=== PATIENT | male | born 1965 | race Caucasian/White ===

== ENCOUNTER 2024-12-02 13:01 | Outpatient (AMB) | payer OTHER, SELFPAY ==
--- NOTE | 2024-12-02 13:03 | MHC.OFFVIS ---
Vital Signs 12/02/24 13:05 Height 5 ft 10 in Weight 185 lb 3.013 oz BMI 26.6 BP 111/78 Blood Pressure Location Lt brachial Position Sitting Pulse 78 Intake Visit Reasons: colo screening Intake Note: Gino presents in the office as a new patient colonoscopy screening. CC: States that the last time he had polyps removed so he is on the 5 year plan. Small Business Sales Representative Required: No Allergies No Known Allergies Allergy (Verified 12/02/24 13:05) Medication List - Last Reconciled 12/02/24 by Gabby Dougherty CNP albuterol sulfate 90 mcg/actuation inhalation diphenhydramine HCl (Benadryl) 25 mg PO BEDTIME PRN lisinopril-hydrochlorothiazide 20-12.5 mg 1 tab PO DAILY simethicone (Gas-X) 250 mg PO DAILY PRN HPI HPI colo screening: Details: Patient is a 59-year-old male with PMH of nicotine dependence, COPD, BPH, RICK, hypertension and hyperlipidemia. Referred by PCP for pre colonoscopy screening. Patient last underwent a colonoscopy five years ago at [facility], which revealed non-cancerous polyps. He reports having regular bowel movements daily without difficulty or blood in his stools. He denies experiencing any upper gastrointestinal symptoms such as heartburn, regurgitation, or dysphasia. His weight is stable at 185 lbs, and his appetite is normal. Patient denies: fever/chills, n/v, unintentional wt loss, ab pain or melena/hematochezia. Social History - Alcohol/Tobacco/Drug Use: - Alcohol: Consumes a six-pack of beer and a couple of shots once or twice a week - Recreational drug use: Daily use of gummy with low THC - Tobacco: Current smoker, half a pack to a pack per day - Occupation: [employer], [employer]. Patient denies: fever/chills, n/v, appetite changes, pyrosis, regurgitation,dysphasia, unintentional wt loss, ab pain, or melena/hematochezia. - family hx as below -denies personal hx of CA -tolerated anesthesia in the past wihtout difficulty. [facility] Medical History (Updated 12/02/24 @ 16:43 by Gabby Dougherty CNP) COPD (chronic obstructive pulmonary disease) Colon cancer screening Surgical History Hx of colonoscopy Review of Systems Const Reports as per [facility] ENT Reports as per [facility] Card Reports as per [facility] Resp Reports as per [facility] GI Reports as per [facility] Reports as per [facility] Physical Exam Vital Signs: Last Vital Signs Pulse 78 12/02/24 13:05 BP 111/78 12/02/24 13:05 BMI result Body Mass Index 26.6 Const General: healthy appearing, no acute distress and well developed Nutritional Appearance: well nourished Orientation/consciousness: patient oriented x3 HEENT Head: Yes normal to inspection, Yes normocephalic and Yes atraumatic Face and sinus: Yes normal facial exam Eyes General: appearance normal, both eyes and all related structures Neck Neck: Yes normal visual inspection Resp Effort & Inspection: normal respiratory effort, able to speak in complete sentences, no tracheal deviation and symmetric chest movement Auscultation: wheezes inspiratory wheezes and lower bilaterally Cardio Jugular venous distension: no JVD Rate: regular rate Rhythm: regular rhythm Heart sounds: S1 normal heart sound present, S2 normal heart sound present, no gallops and no murmurs GI Inspection: Yes normal to inspection and No distended Palpation (GI): Soft to palpation, not firm, nontender and No hepatosplenomegaly present Auscultation: Hyperactive bowel sounds present Neuro General: patient oriented x3 Gait exam (Neuro): Normal gait present Psych Appearance: grossly normal Mental Status: mental status grossly normal Speech and movement: Normal speech and movement present Affect: normal affect Attitude: cooperative Thought process: Normal thought process present Thought content: Normal thought content present Insight: Good insight present (Psych) Judgement: Good judgement present (Psych) Assessment & Plan Assessment & Plan (1) Colon cancer screening: Code(s): Z12.11 - Encounter for screening for malignant neoplasm of colon Category: Medical Plan: last colonoscopy five years ago at [facility], which revealed non-cancerous poly per pt. Results not available at time of visit. Diagnostic Tests: Prescriptions for laxative tablets and PEG sent to pharmacy; instructions for Gatorade purchase and clear liquid diet given. Patient educated on procedure preparation, including avoiding certain foods and ensuring clear liquid intake. Advised on necessity for ride post-procedure due to sedation. (2) COPD (chronic obstructive pulmonary disease): Code(s): J44.9 - Chronic obstructive pulmonary disease, unspecified Category: Medical Qualifiers: COPD type: unspecified COPD Qualified Code(s): J44.9 - Chronic obstructive pulmonary disease, unspecified Plan: discussed wheezing findings on exam. Reassured he is otherwise asymptomatic -advised inhaler use after visit -smoking cessation Plan follow up as needed after colonoscopy Time: I spent a total of 20 minutes on the date of encounter which includes: Preparing to see the patient (reviewed previous documentation, test results and medical history) Performing a medically appropriate exam and/or evaluation Ordering medications, tests, and procedures Documenting clinical information in the health record Medications: New bisacodyl Take four tablets once for 1 day per colonoscopy instructions 5 mg PO ONCE 1 day 4 tabs 0RF peg 3350-electrolytes [id number] -5.86 gram until fecal effluent is clear 240 mL PO Q10M 4,000 mL 0RF Coding Level of Care Code New Pt New Pt Level 3 (02723) Patient Type New Diagnoses Colon cancer screening Z12.11 Chronic obstructive pulmonary disease, unspecified COPD type J44.9 COPD type: unspecified COPD
[2024-12-02 13:05] VITALS: BP 111/78; PULSE 78; BMI 26.6
== END 2024-12-02 13:51 | disposition home or self-care (01) ==
LOC: HO.HGI 13:02
PROVIDERS: PCP Physician Assistant Medical; Visit Provider Nurse Practitioner Family
DX: Z01.818 Encounter for other preprocedural examination (principal); Z12.11 Encounter for screening for malignant neoplasm of colon; Z86.0100 Personal history of colon polyps, unspecified; J44.9 Chronic obstructive pulmonary disease, unspecified
CPT/HCPCS: S0285